=== PATIENT | female | born 2000 | race American Indian/Alaskan Native ===

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

== ENCOUNTER 2020-02-12 12:37 | Emergency (ER) | payer MEDICAID ==
--- NOTE | 2020-02-12 14:36 | Event Note ---
ED Screening Note ED Screening Note: lower abd pain that began this morning sharp, stabbing +nausea +diarrhea no vomiting + sick contact with cold symptoms no fever +dysuria no pmhx allergy: penicillin LNMP: end january no past abdominal surgical history This initial assessment/diagnostic orders/clinical plan/treatment(s) is/are subject to change based on patients health status, clinical progression and re- assessment by fellow clinical providers in the ED. Further treatment and workup at subsequent clinical providers discretion. Patient/guardian urged not to elope from the ED as their condition may be serious if not clinically assessed and managed. Initial orders include: labs, UA
[2020-02-12 14:58] LABS: Basophils % (Auto) 0.4 % (0.0-1.8); Eosinophils % (Auto) 0.2 % (0.0-4.3); Hematocrit 36.9 % (30.3-42.9); Hemoglobin 12.4 gm/dl (10.1-14.3); Lymphocytes % (Auto) 28.6 % (13.4-35.0); Mean Corpuscular HGB Conc 34 % (30-34); Mean Corpuscular Volume 81 fl (79-97); Monocytes # (Auto) 0.5 K/mm3 (0.0-0.8); Platelet Count 226 K/mm3 (140-440); Red Blood Count 4.53 M/mm3 (3.65-5.03); Red Cell Distribution Width 13.7 % (13.2-15.2)
[2020-02-12 15:12] LABS: Alanine Aminotransferase 8 units/L (7-56); Albumin 4.3 g/dL (3.9-5); Blood Urea Nitrogen 8 mg/dL (7-17); Calcium 9.6 mg/dL (8.4-10.2); Hemolysis Index 17
[2020-02-12 15:15] LABS: BUN/Creatinine Ratio 11
[2020-02-12] MEDS ORDERED: ONDANSETRON 4 MG/2 ML INJ IV ONE ×2 (15:58→16:54)
[2020-02-12] MEDS ORDERED: KETOROLAC 30 MG/1 ML INJ IV ONE (15:58)
--- NOTE | 2020-02-12 16:00 | Emergency Department Report ---
<BRYAN MIR - Last Filed: 02/12/20 17:14> ED Abdominal Pain HPI - General Chief Complaint: Abdominal Pain Stated Complaint: SIDE/STOMACH PAIN Time Seen by Provider: 02/12/20 14:31 Source: patient Mode of arrival: Wheelchair Limitations: No Limitations - History of Present Illness Initial Comments: Is a pleasant 19-year-old female presents the emergency department chief complaint of right lower quadrant abdominal pain, diarrhea that started this morning at 8 AM. She reports this was sudden in onset. She states she has been feeling like she had a cold for the last few days. She denies any associated fever, chills, night sweats, headache, dizziness, blurry vision, nausea, vomiting, fever, chills, night sweats, chest pain, shortness of breath or any other associated symptoms. - Related Data Previous Rx's Medication Instructions Recorded Last Taken Type Sulfamethoxazole/Trimethoprim 5 ml PO BID #10 day 10/11/18 Unknown Rx [Bactrim 200-40 mg/5 ml Oral Liq] Cetirizine HCl [Zyrtec 10mg tab] 10 mg PO DAILY #30 tablet 12/02/18 Unknown Rx Fluticasone [Flonase] 1 spray NS QDAY #1 bottle 12/02/18 Unknown Rx Nystas/Diphen/Xyl Visc/Mylanta 30 ml MM BID PRN #480 ml 12/02/18 Unknown Rx [Magic Mouthwash] Chlorhexidine Mouthwash [Peridex] 15 ml MM BID #473 bottle 12/03/18 Unknown Rx Clarithromycin [Biaxin] 500 mg PO BID #14 tab 12/03/18 Unknown Rx Lidocaine Viscous 2% 5 ml MM Q3H PRN #120 udc 12/03/18 Unknown Rx Ondansetron [Zofran ODT TAB] 8 mg PO Q12HR #14 tab.rapdis 12/03/18 Unknown Rx Ondansetron [Zofran Odt] 4 mg PO Q8HR PRN #12 tab.rapdis 02/12/20 Unknown Rx Sulfamethoxazole/Trimethoprim 1 each PO BID #14 tablet 02/12/20 Unknown Rx [Bactrim DS TAB] metroNIDAZOLE [Flagyl] 500 mg PO Q12HR #14 tab 02/12/20 Unknown Rx Allergies Allergy/AdvReac Type Severity Reaction Status Date / Time Penicillins Allergy Rash Verified 12/02/18 18:09 ED Review of Systems Comment: All other systems reviewed and negative Constitutional: denies: chills, fever Eyes: denies: eye pain, eye discharge, vision change ENT: denies: ear pain, throat pain Respiratory: denies: cough, shortness of breath, wheezing Cardiovascular: denies: chest pain, palpitations Endocrine: no symptoms reported Gastrointestinal: as per HPI, abdominal pain, nausea, vomiting. denies: diarrhea Genitourinary: denies: urgency, dysuria, discharge Musculoskeletal: denies: back pain, joint swelling, arthralgia Skin: denies: rash, lesions Neurological: denies: headache, weakness, paresthesias Psychiatric: denies: anxiety, depression Hematological/Lymphatic: denies: easy bleeding, easy bruising ED Past Medical Hx - Past Medical History Previous Medical History?: No - Surgical History Past Surgical History?: No - Social History Smoking Status: Never Smoker Substance Use Type: None - Medications Home Medications: Home Medications Medication Instructions Recorded Confirmed Last Taken Type Sulfamethoxazole/Trimethoprim 5 ml PO BID #10 day 10/11/18 Unknown Rx [Bactrim 200-40 mg/5 ml Oral Liq] Cetirizine HCl [Zyrtec 10mg tab] 10 mg PO DAILY #30 tablet 12/02/18 Unknown Rx Fluticasone [Flonase] 1 spray NS QDAY #1 bottle 12/02/18 Unknown Rx Nystas/Diphen/Xyl Visc/Mylanta 30 ml MM BID PRN #480 ml 12/02/18 Unknown Rx [Magic Mouthwash] Chlorhexidine Mouthwash [Peridex] 15 ml MM BID #473 bottle 12/03/18 Unknown Rx Clarithromycin [Biaxin] 500 mg PO BID #14 tab 12/03/18 Unknown Rx Lidocaine Viscous 2% 5 ml MM Q3H PRN #120 udc 12/03/18 Unknown Rx Ondansetron [Zofran ODT TAB] 8 mg PO Q12HR #14 tab.rapdis 12/03/18 Unknown Rx Ondansetron [Zofran Odt] 4 mg PO Q8HR PRN #12 tab.rapdis 02/12/20 Unknown Rx Sulfamethoxazole/Trimethoprim 1 each PO BID #14 tablet 02/12/20 Unknown Rx [Bactrim DS TAB] metroNIDAZOLE [Flagyl] 500 mg PO Q12HR #14 tab 02/12/20 Unknown Rx ED Physical Exam - General Limitations: No Limitations General appearance: alert, in no apparent distress - Head Head exam: Present: atraumatic, normocephalic - Eye Eye exam: Present: normal appearance - ENT ENT exam: Present: normal exam, normal orophraynx, mucous membranes moist - Neck Neck exam: Present: normal inspection, full ROM. Absent: tenderness, meningismus - Respiratory Respiratory exam: Present: normal lung sounds bilaterally. Absent: respiratory distress, wheezes, rales, rhonchi, stridor - Cardiovascular Cardiovascular Exam: Present: regular rate, normal rhythm, normal heart sounds. Absent: systolic murmur, diastolic murmur, rubs, gallop - GI/Abdominal GI/Abdominal exam: Present: soft, tenderness (TTP to RLQ, no CVA TTP ), normal bowel sounds. Absent: distended, guarding, rebound, rigid - Extremities Exam Extremities exam: Present: normal inspection, full ROM, normal capillary refill. Absent: tenderness, calf tenderness - Back Exam Back exam: Present: normal inspection, full ROM. Absent: tenderness, CVA tenderness (R), CVA tenderness (L) - Neurological Exam Neurological exam: Present: alert, oriented X3, normal gait - Psychiatric Psychiatric exam: Present: normal affect, normal mood - Skin Skin exam: Present: warm, dry, intact, normal color. Absent: rash ED Course - Reevaluation(s) Reevaluation #1: 02/12/20 17:15 Patient nontoxic in no acute distress. Exam with right lower quadrant tenderness. CT was ordered to rule out appendicitis and was unremarkable there was a large cyst on the right ovary. Due to the level of pain ultrasound was ordered. Labs relatively normal. Urine pending. Please see my colleague Jake CARRILLO's note for full dispo instructions. ED Medical Decision Making - Lab Data Result diagrams: 02/12/20 14:36 02/12/20 14:36 Lab Results 02/12/20 02/12/20 02/12/20 Range/Units 14:36 14:36 14:36 WBC 7.0 (4.5-11.0) K/mm3 RBC 4.53 (3.65-5.03) M/mm3 Hgb 12.4 (10.1-14.3) gm/dl Hct 36.9 (30.3-42.9) % MCV 81 (79-97) fl MCH 27 L (28-32) pg MCHC 34 (30-34) % RDW 13.7 (13.2-15.2) % Plt Count 226 (140-440) K/mm3 Lymph % (Auto) 28.6 (13.4-35.0) % Park % (Auto) 7.0 (0.0-7.3) % Eos % (Auto) 0.2 (0.0-4.3) % Baso % (Auto) 0.4 (0.0-1.8) % Lymph # (Auto) 2.0 (1.2-5.4) K/mm3 Park # (Auto) 0.5 (0.0-0.8) K/mm3 Eos # (Auto) 0.0 (0.0-0.4) K/mm3 Baso # (Auto) 0.0 (0.0-0.1) K/mm3 Seg Neutrophils % 63.8 (40.0-70.0) % Seg Neutrophils # 4.5 (1.8-7.7) K/mm3 Sodium 138 (137-145) mmol/L Potassium 4.6 (3.6-5.0) mmol/L Chloride 104.4 (98-107) mmol/L Carbon Dioxide 25 (22-30) mmol/L Anion Gap 13 mmol/L BUN 8 (7-17) mg/dL Creatinine 0.7 (0.6-1.2) mg/dL Estimated GFR > 60 ml/min BUN/Creatinine Ratio 11 % Glucose 92 (65-100) mg/dL Calcium 9.6 (8.4-10.2) mg/dL Total Bilirubin 0.40 (0.1-1.2) mg/dL AST 17 (5-40) units/L ALT 8 (7-56) units/L Alkaline Phosphatase 36 (35-129) units/L Total Protein 7.1 (6.3-8.2) g/dL Albumin 4.3 (3.9-5) g/dL Albumin/Globulin Ratio 1.5 % Lipase 18 (13-60) units/L HCG, Qual Negative (Negative) - Radiology Data Radiology results: report reviewed Cat Scan Report Signed Patient: SHERICE HAWKINS MR#: [id number] : 2000 Acct:[id number] Age/Sex: 19 / F ADM Date: 02/12/20 Loc: ED Attending Dr: Ordering Physician: RADHA BOB Date of Service: 02/12/20 Procedure(s): CT abdomen pelvis w con Accession Number(s): [id number] cc: RADHA BOB CT abdomen pelvis w con INDICATION: RLQ pain. TECHNIQUE: All CT scans at this location are performed using the following dose modulation technique: Automated exposure control. CONTRAST: Omnipaque 300, 100 cc IV injection. COMPARISON: None available. CT ABDOMEN: The parenchymal organs are unremarkable in appearance. Negative for abdominal mass, fluid or inflammation. The bowel is not dilated or thickened. CT PELVIS: The appendix is normal. A complex lesion at the right adnexa measures 4.7 x 3.8 cm. A small amount of free pelvic fluid is present. IMPRESSION: 1. Suspect large, complex cyst right adnexa. 2. Small amount of pelvic free fluid. Signer Name: Aquilino Mendez MD Signed: 02/12/2020 4:48 PM Workstation Name: [id number] Transcribed By: ES Dictated By: Aquilino Mendez MD Electronically Authenticated By: Aquilino Mendez MD Signed Date/Time: 02/12/20 1648 - Differential Diagnosis appendicitis, ovarian cyst, nephrolithiasis ED Disposition Clinical Impression: Bacterial vaginosis Nausea & vomiting Qualifiers: Vomiting type: unspecified Vomiting Intractability: non-intractable Qualified Code(s): R11.2 - Nausea with vomiting, unspecified Abdominal pain Qualifiers: Abdominal location: lower abdomen, unspecified Qualified Code(s): R10.30 - Lower abdominal pain, unspecified Ovarian cyst Qualifiers: Laterality: right Qualified Code(s): N83.201 - Unspecified ovarian cyst, right side UTI (urinary tract infection) Qualifiers: Urinary tract infection type: acute cystitis Hematuria presence: without hematuria Qualified Code(s): N30.00 - Acute cystitis without hematuria Disposition: TO HOME OR SELFCARE Condition: Stable Instructions: Abdominal Pain (ED), Bacterial Vaginosis (ED), Nausea and Vomiting, Adult, Abdominal Pain, Adult Additional Instructions: Follow-up with a primary care doctor in 3-5 days or if symptoms worsen and continue return to emergency room as soon as possible. Return in 3 to 5 days for gonorrhea chlamydia results. Prescriptions: Sulfamethoxazole/Trimethoprim [Bactrim DS TAB] 1 each PO BID #14 tablet metroNIDAZOLE [Flagyl] 500 mg PO Q12HR #14 tab Ondansetron [Zofran Odt] 4 mg PO Q8HR PRN #12 tab.rapdis PRN Reason: Nausea Referrals: PRIMARY CAREMD [Primary Care Provider] - 3-5 Days RICH VIEIRA MD [Staff Physician] - 3-5 Days Forms: Work/School Release Form(ED) <JAKE MACDONALD - Last Filed: 02/12/20 21:53> ED Review of Systems ROS: Stated complaint: SIDE/STOMACH PAIN Other details as noted in HPI ED Physical Exam - External exam: Present: normal external exam, other (Asic Verification Engineer Ebony RN present during exam). Absent: erythema, swelling, lesions, lacerations, ecchymosis, bleeding Speculum exam: Present: cervical discharge, other (Asic Verification Engineer Ebony RN present during exam). Absent: erythema, vaginal discharge, vaginal bleeding, foreign body, tissue, laceration Bi-manual exam: Present: normal bi-manual exam, other (Asic Verification Engineer Ebony RN present during exam). Absent: cervical motion tendernes, adnexal tenderness, adnexal mass, uterine enlargement, uterine tenderness ED Course Vital Signs 02/12/20 02/12/20 02/12/20 13:14 16:12 16:56 Temperature 98.0 F Pulse Rate 84 Respiratory 18 18 18 Rate Blood Pressure 138/84 [Right] O2 Sat by Pulse 98 Oximetry 02/12/20 17:08 Temperature Pulse Rate Respiratory 18 Rate Blood Pressure [Right] O2 Sat by Pulse Oximetry ED Medical Decision Making - Lab Data Result diagrams: 02/12/20 14:36 02/12/20 14:36 - Radiology Data Referring Physician: JAKE MACDONALD Patient Name: SHERICE HAWKINS Date of : 2000 Sex: Female Report Date: 2020-02-12 Report Status: Finalized [facility] [address] [place] [address] Ultrasound Report Signed Patient: SHERICE HAWKINS MR#: [id number] : 2000 Acct:[id number] Age/Sex: 19 / F ADM Date: 02/12/20 Loc: ED Attending Dr: Ordering Physician: JAKE MACDONALD NP Date of Service: 02/12/20 Procedure(s): US pelvis duplex doppler comp Accession Number(s): [id number] cc: JAKE MACDONALD NP PELVIC ULTRASOUND HISTORY: Complex cyst right adnexa. COMPARISON: CT abdomen and pelvis earlier the same day. FINDINGS: Imaging was performed transabdominally. The uterus measures 8.9 x 3.4 x 4.2 cm. The endometrial stripe is prominent measuring 12.5 mm. Right ovary measures 6 x 4.9 x 5.1 cm. A complex lesion at the right ovary measures 4.6 cm. Left ovary measures 2.7 x 1.5 x 1.8 cm and is unremarkable in appearance. Both ovaries contain flow. A small amount of free fluid is noted. IMPRESSION: 1. Complex lesion right ovary is likely a hemorrhagic cyst. 2. Small amount of pelvic free fluid. 3. Prominent endometrial stripe is likely cycle related. 4. Appropriate ovarian flow. Signer Name: Aquilino Mendez MD Signed: 02/12/2020 7:47 PM Workst ation Name: [id number] Transcribed By: ES Dictated By: Aquilino Mendez MD Electronically Authenticated By: Aquilino Mendez MD Signed Date/Time: 02/12/201946 DD/ 43 TD/TT: - Medical Decision Making This is a 19-year-old female that was signed out to me by Darrell GARCIA for pending CT scan. Patient is notified of the CT and ultrasound report with no questions noted by the patient. Exam does not show that she has any cervical motion ten derness. Gonorrhea chlamydia pending. Labs obtained. UA obtained. Patient received medical treatment in the ED which patient stated symptoms has resovled and subsided. Was instructed note to operate any machinery due to possible drowsiness and stated someone will drive the patient home. A by mouth challenge has been obtained and patient tolerated well with no nausea vomiting. Patient was notified of strict precatuions of appendictis symptoms and to return to the ED if symptoms occurs as soon as possible. Patient was also instructed to Follow-up with a primary care doctor in 3-5 days or if symptoms worsen and continue return to emergency room as soon as possible. At time of discharge, the patient does not seem toxic or ill in appearance. No acute signs of distress noted. Patient agrees to discharge treatment plan of care. No further questions noted by the patient. Critical care attestation.: If time is entered above; I have spent that time in minutes in the direct care of this critically ill patient, excluding procedure time. ED Disposition Is pt being admited?: No Does the pt Need Aspirin: No Time of Disposition: 21:52
--- NOTE | 2020-02-12 16:53 | Cat Scan Report ---
CT abdomen pelvis w con INDICATION: RLQ pain. TECHNIQUE: All CT scans at this location are performed using the following dose modulation technique: Automated exposure control. CONTRAST: Omnipaque 300, 100 cc IV injection. COMPARISON: None available. CT ABDOMEN: The parenchymal organs are unremarkable in appearance. Negative for abdominal mass, fluid or inflammation. The bowel is not dilated or thickened. CT PELVIS: The appendix is normal. A complex lesion at the right adnexa measures 4.7 x 3.8 cm. A smal l amount of free pelvic fluid is present. IMPRESSION: 1. Suspect large, complex cyst right adnexa. 2. Small amount of pelvic free fluid. Signer Name: Aquilino Mendez MD Signed: 02/12/2020 4:48 PM Workstation Name: [id number]
[2020-02-12] MEDS ORDERED: MORPHINE 4 MG/1 ML INJ IV ONE (16:54)
[2020-02-12 19:33] LABS: Bacteria,Urine 1+ /HPF (Negative); Bilirubin,Urine NEG (Negative); Blood,Urine NEG (Negative); Color,Urine Yellow (Yellow); Protein,Urine <15 mg/dL mg/dL (Negative); Urobilinogen,Urine < 2.0 mg/dL (<2.0)
--- NOTE | 2020-02-12 19:51 | Ultrasound Report ---
PELVIC ULTRASOUND HISTORY: Complex cyst right adnexa. COMPARISON: CT abdomen and pelvis earlier the same day. FINDINGS: Imaging was performed transabdominally. The uterus measures 8.9 x 3.4 x 4.2 cm. The endomet rial stripe is prominent measuring 12.5 mm. Right ovary measures 6 x 4.9 x 5.1 cm. A complex lesion at the right ovary measures 4.6 cm. Left ovar y measures 2.7 x 1.5 x 1.8 cm and is unremarkable in appearance. Both ovaries contain flow. A small amount of free fluid is noted. IMPRESSION: 1. Complex lesion right ovary is likely a hemorrhagic cyst. 2. Small amount of pelvic free fluid. 3. Prominent endometrial stripe is likely cycle related. 4. Appropriate ovarian flow. Signer Name: Aquilino Mendez MD Signed: 02/12/2020 7:47 PM Workstation Name: [id number]
[2020-02-12 22:55] VITALS: BP 108/75
== END 2020-02-12 22:25 | disposition home or self-care (01) ==
LOC: ED 12:37
DX: N39.0 Urinary tract infection, site not specified (principal); N83.209 Unspecified ovarian cyst, unspecified side; N76.0 Acute vaginitis; B96.89 Other specified bacterial agents as the cause of diseases classified elsewhere; R10.31 Right lower quadrant pain; R11.2 Nausea with vomiting, unspecified; Z79.2 Long term (current) use of antibiotics; Z79.899 Other long term (current) drug therapy; Z88.0 Allergy status to penicillin
CPT/HCPCS: 36415; 74177; 80053; 81001; 83690; 84703; 85025; 87210; 87591; 93975; 96374; 96375; 96376; 99284; J1885; J2270; J2405; Q9967

== ENCOUNTER 2020-02-25 13:39 | Emergency (ER) | payer SELFPAY ==
[2020-02-25 14:41] VITALS: BP 116/86
--- NOTE | 2020-02-25 15:03 | Event Note ---
ED Screening Note ED Screening Note: Patient is a 19-year-old female presents emergency room complaints of constipation and rectal pain that began today She states that she also has rectal bleeding when she wipes She states she last had a bowel movement 2 days ago No fever or vomiting No past medical history allergy to penicillin last menstrual cycle 01/26/2020 This initial assessment/diagnostic orders/clinical plan/treatment(s) is/are subject to change based on patients health status, clinical progression and re- assessment by fellow clinical providers in the ED. Further treatment and workup at subsequent clinical providers discretion. Patient/guardian urged not to elope from the ED as their condition may be serious if not clinically assessed and managed. Initial orders include: Labs, urine, x-ray
[2020-02-25 15:48] LABS: Basophils % (Auto) 0.3 % (0.0-1.8); Eosinophils % (Auto) 0.2 % (0.0-4.3); Hematocrit 37.7 % (30.3-42.9); Hemoglobin 12.2 gm/dl (10.1-14.3); Lymphocytes # (Auto) 1.5 K/mm3 (1.2-5.4); Lymphocytes % (Auto) 11.7 % (13.4-35.0); Mean Corpuscular HGB Conc 32 % (30-34); Mean Corpuscular Volume 83 fl (79-97); Monocytes # (Auto) 0.5 K/mm3 (0.0-0.8); Monocytes % (Auto) 4.1 % (0.0-7.3); Platelet Count 299 K/mm3 (140-440); Red Blood Count 4.54 M/mm3 (3.65-5.03)
[2020-02-25 16:07] LABS: Alanine Aminotransferase 8 units/L (7-56); Albumin 4.3 g/dL (3.9-5); BUN/Creatinine Ratio 15; Blood Urea Nitrogen 12 mg/dL (7-17); Calcium 9.3 mg/dL (8.4-10.2); Hemolysis Index 8
--- NOTE | 2020-02-25 17:16 | XRay Report ---
ABDOMEN 2 VIEW(S) INDICATION / CLINICAL INFORMATION: constipation, rectal pain. COMPARISON: None available. FINDINGS: TUBES / LINES: None. BOWEL GAS PATTERN/EXTRALUMINAL GAS: No significant abnormality. No free air. There is a small amount of stool in colon ADDITIONAL FINDINGS: No significant additional findings. IMPRESSION: 1. No acute abnormality. Signer Name: Enrique Caceres MD Signed: 02/25/2020 5:11 PM Workstation Name: [id number]
[2020-02-25] MEDS ORDERED: SODIUM CHLORIDE 0.9% 1000 ML 1,000 ML IV ONE (20:17)
[2020-02-25] MEDS ORDERED: ONDANSETRON 4 MG/2 ML INJ IV ONE (20:17)
[2020-02-25] MEDS ORDERED: MORPHINE 4 MG/1 ML INJ IV ONE (20:17)
--- NOTE | 2020-02-25 21:32 | Cat Scan Report ---
CT ABDOMEN AND PELVIS WITH CONTRAST INDICATION / CLINICAL INFORMATION: RLQ pain. TECHNIQUE: Axial CT images were obtained through the abdomen and pelvis following the administration of intraven ous contrast. All CT scans at this location are performed using CT dose reduction for ALARA by means of automated exposure control. COMPARISON: CT abdomen/pelvis dated 02/12/2020. FINDINGS: LOWER CHEST: No significant abnormality. LIVER: No significant abnormality. GALLBLADDER: No significant abnormality. PANCREAS: No significant abnormality. SPLEEN: No significant abnormality. ADRENALS: No significant abnormality. KIDNEYS / URETERS: No significant abnormality. URINARY BLADDER: No significant abnormality. REPRODUCTIVE ORGANS: No significant abnormality. STOMACH / SMALL BOWEL: No significant abnormality. COLON: No significant abnormality. APPENDIX: No significant abnormality. PERITONEUM: There is a small volume of pelvic free fluid. No free air. No fluid collection. LYMPH NODES: No significant adenopathy. AORTA / ARTERIES: No significant abnormality. IVC / VEINS: No significant abnormality. SKELETAL SYSTEM: No significant abnormality. ADDITIONAL FINDINGS: None. IMPRESSION: 1. Small volume pelvic free fluid may be physiologic. A ruptured ovarian cyst cannot be completely ex cluded. 2. The appendix is normal. Signer Name: Rafi Virgen MD Signed: 02/25/2020 9:27 PM Workstation Name: [id number]
[2020-02-25 21:57] LABS: Bilirubin,Urine NEG (Negative); Blood,Urine MOD (Negative); Color,Urine Yellow (Yellow); Mucus,Urine FEW /HPF; Protein,Urine <15 mg/dL mg/dL (Negative); Urobilinogen,Urine < 2.0 mg/dL (<2.0)
--- NOTE | 2020-02-25 22:02 | Emergency Department Report ---
ED Abdominal Pain HPI - General Chief Complaint: Rectal Pain Stated Complaint: CONSTIPATION Time Seen by Provider: 02/25/20 15:01 Source: patient Mode of arrival: Ambulatory Limitations: No Limitations - History of Present Illness Initial Comments: This is a 19-year-old female nontoxic, well nourished in appearance, no acute signs of distress presents to the ED with c/o of RLQ abdominal pain x 1 day. PAtient stated has been constipated a few days and tried to have a bowel movement and was not able to and after whipping saw some blood in the tissue paper. PAtient stated after she signed in to the ED, she went to the restroom and tried to have a bowel movement and was successful but was very hard and constipated. Patient denies nausea or vomiting. Patient describes abdominal pain as cramping and aching with level of 8/10 to RLQ. Patient denies chest pain, short of breath, fever, hemoptysis, blood in stool, chills, headache, stiff neck, numbness or tingling. Patient denies any diarrhea. Denies any blood in stool. Patient denies any recent travels. Patient stated allergies to PCN. MD Complaint: abdominal pain -: This evening Location: RLQ Radiation: none Migration to: no migration Severity: mild Severity scale (0 -10): 8 Quality: cramping, aching Consistency: constant Improves With: nothing Worsens With: nothing Associated Symptoms: constipation. denies: nausea, vomiting, diarrhea, fever, chills, dysuria, hematemesis, hematochezia, melena, hematuria, anorexia, syncope - Related Data Previous Rx's Medication Instructions Recorded Last Taken Type Sulfamethoxazole/Trimethoprim 5 ml PO BID #10 day 10/11/18 Unknown Rx [Bactrim 200-40 mg/5 ml Oral Liq] Cetirizine HCl [Zyrtec 10mg tab] 10 mg PO DAILY #30 tablet 12/02/18 Unknown Rx Fluticasone [Flonase] 1 spray NS QDAY #1 bottle 12/02/18 Unknown Rx Nystas/Diphen/Xyl Visc/Mylanta 30 ml MM BID PRN #480 ml 12/02/18 Unknown Rx [Magic Mouthwash] Chlorhexidine Mouthwash [Peridex] 15 ml MM BID #473 bottle 12/03/18 Unknown Rx Clarithromycin [Biaxin] 500 mg PO BID #14 tab 12/03/18 Unknown Rx Lidocaine Viscous 2% 5 ml MM Q3H PRN #120 udc 12/03/18 Unknown Rx Ondansetron [Zofran ODT TAB] 8 mg PO Q12HR #14 tab.rapdis 12/03/18 Unknown Rx Ondansetron [Zofran Odt] 4 mg PO Q8HR PRN #12 tab.rapdis 02/12/20 Unknown Rx Sulfamethoxazole/Trimethoprim 1 each PO BID #14 tablet 02/12/20 Unknown Rx [Bactrim DS TAB] metroNIDAZOLE [Flagyl] 500 mg PO Q12HR #14 tab 02/12/20 Unknown Rx Allergies Allergy/AdvReac Type Severity Reaction Status Date / Time Penicillins Allergy Rash Verified 12/02/18 18:09 ED Review of Systems ROS: Stated complaint: CONSTIPATION Other details as noted in HPI Constitutional: denies: chills, fever Eyes: denies: eye pain, eye discharge, vision change ENT: denies: ear pain, throat pain Respiratory: denies: cough, shortness of breath, wheezing Cardiovascular: denies: chest pain, palpitations Endocrine: no symptoms reported Gastrointestinal: abdominal pain, constipation. denies: nausea, vomiting, diarrhea, hematemesis, melena, hematochezia Genitourinary: denies: urgency, dysuria, discharge Musculoskeletal: denies: back pain, joint swelling, arthralgia Skin: denies: rash, lesions Neurological: denies: headache, weakness, paresthesias Psychiatric: denies: anxiety, depression Hematological/Lymphatic: denies: easy bleeding, easy bruising ED Past Medical Hx - Past Medical History Previous Medical History?: No - Surgical History Past Surgical History?: No - Social History Smoking Status: Never Smoker Substance Use Type: None - Medications Home Medications: Home Medications Medication Instructions Recorded Confirmed Last Taken Type Sulfamethoxazole/Trimethoprim 5 ml PO BID #10 day 10/11/18 Unknown Rx [Bactrim 200-40 mg/5 ml Oral Liq] Cetirizine HCl [Zyrtec 10mg tab] 10 mg PO DAILY #30 tablet 12/02/18 Unknown Rx Fluticasone [Flonase] 1 spray NS QDAY #1 bottle 12/02/18 Unknown Rx Nystas/Diphen/Xyl Visc/Mylanta 30 ml MM BID PRN #480 ml 12/02/18 Unknown Rx [Magic Mouthwash] Chlorhexidine Mouthwash [Peridex] 15 ml MM BID #473 bottle 12/03/18 Unknown Rx Clarithromycin [Biaxin] 500 mg PO BID #14 tab 12/03/18 Unknown Rx Lidocaine Viscous 2% 5 ml MM Q3H PRN #120 udc 12/03/18 Unknown Rx Ondansetron [Zofran ODT TAB] 8 mg PO Q12HR #14 tab.rapdis 12/03/18 Unknown Rx Ondansetron [Zofran Odt] 4 mg PO Q8HR PRN #12 tab.rapdis 02/12/20 Unknown Rx Sulfamethoxazole/Trimethoprim 1 each PO BID #14 tablet 02/12/20 Unknown Rx [Bactrim DS TAB] metroNIDAZOLE [Flagyl] 500 mg PO Q12HR #14 tab 02/12/20 Unknown Rx ED Physical Exam - General Limitations: No Limitations General appearance: alert, in no apparent distress - Head Head exam: Present: atraumatic, normocephalic - Eye Eye exam: Present: normal appearance - Neck Neck exam: Present: normal inspection, full ROM. Absent: tenderness, meni ngismus, lymphadenopathy - Respiratory Respiratory exam: Present: normal lung sounds bilaterally. Absent: respiratory distress, wheezes, rales, rhonchi, stridor, chest wall tenderness, accessory muscle use, decreased breath sounds, prolonged expiratory - Cardiovascular Cardiovascular Exam: Present: regular rate, normal rhythm, normal heart sounds. Absent: bradycardia, tachycardia, irregular rhythm, systolic murmur, diastolic murmur, rubs, gallop - GI/Abdominal GI/Abdominal exam: Present: soft, tenderness (RLQ), normal bowel sounds. 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 Absent: decreased rectal tone, heme (+) stool, black stool, bloody stool, fecal impaction, hemorrhoids, mass, tenderness - Extremities Exam Extremities exam: Present: normal inspection, full ROM - Back Exam Back exam: Present: normal inspection, full ROM. Absent: tenderness, CVA tenderness (R), CVA tenderness (L), muscle spasm, paraspinal tenderness, vertebral tenderness, rash noted - Neurological Exam Neurological exam: Present: alert, oriented X3, normal gait - Psychiatric Psychiatric exam: Present: normal affect, normal mood - Skin Skin exam: Present: warm, dry, intact, normal color. Absent: rash ED Course Vital Signs 02/25/20 02/25/20 13:43 14:41 Temperature 98.2 F Pulse Rate 87 93 H Respiratory 17 24 Rate Blood Pressure 132/81 116/86 [Right] O2 Sat by Pulse 100 97 Oximetry - Reevaluation(s) Reevaluation #1: 02/25/20 22:01 Patient is speaking in full sentences with no signs of distress noted. ED Medical Decision Making - Lab Data Result diagrams: 02/25/20 15:18 02/25/20 15:18 Lab Results 02/25/20 02/25/20 02/25/20 Range/Units 15:18 15:18 15:18 WBC 13.1 H (4.5-11.0) K/mm3 RBC 4.54 (3.65-5.03) M/mm3 Hgb 12.2 (10.1-14.3) gm/dl Hct 37.7 (30.3-42.9) % MCV 83 (79-97) fl MCH 27 L (28-32) pg MCHC 32 (30-34) % RDW 14.0 (13.2-15.2) % Plt Count 299 (140-440) K/mm3 Lymph % (Auto) 11.7 L (13.4-35.0) % Arthur % (Auto) 4.1 (0.0-7.3) % Eos % (Auto) 0.2 (0.0-4.3) % Baso % (Auto) 0.3 (0.0-1.8) % Lymph # (Auto) 1.5 (1.2-5.4) K/mm3 Arthur # (Auto) 0.5 (0.0-0.8) K/mm3 Eos # (Auto) 0.0 (0.0-0.4) K/mm3 Baso # (Auto) 0.0 (0.0-0.1) K/mm3 Seg Neutrophils % 83.7 H (40.0-70.0) % Seg Neutrophils # 11.0 H (1.8-7.7) K/mm3 Sodium 139 (137-145) mmol/L Potassium 3.9 (3.6-5.0) mmol/L Chloride 105.2 (98-107) mmol/L Carbon Dioxide 25 (22-30) mmol/L Anion Gap 13 mmol/L BUN 12 (7-17) mg/dL Creatinine 0.8 (0.6-1.2) mg/dL Estimated GFR > 60 ml/min BUN/Creatinine Ratio 15 % Glucose 89 (65-100) mg/dL Calcium 9.3 (8.4-10.2) mg/dL Total Bilirubin 0.40 (0.1-1.2) mg/dL AST 14 (5-40) units/L ALT 8 (7-56) units/L Alkaline Phosphatase 32 L (35-129) units/L Total Protein 7.4 (6.3-8.2) g/dL Albumin 4.3 (3.9-5) g/dL Albumin/Globulin Ratio 1.4 % Lipase 36 (13-60) units/L HCG, Qual Negative (Negative) Urine Color (Yellow) Urine Turbidity (Clear) Urine pH (5.0-7.0) Ur Specific [place] (1.003-1.030) Urine Protein (Negative) mg/dL Urine Glucose (UA) (Negative) mg/dL Urine Ketones (Negative) mg/dL Urine Blood (Negative) Urine Nitrite (Negative) Urine Bilirubin (Negative) Urine Urobilinogen (<2.0) mg/dL Ur Leukocyte Esterase (Negative) Urine WBC (Auto) (0.0-6.0) /HPF Urine RBC (Auto) (0.0-6.0) /HPF U Epithel Cells (Auto) (0-13.0) /HPF Urine Mucus /HPF 12/20/20 Range/Units 21:41 WBC (4.5-11.0) K/mm3 RBC (3.65-5.03) M/mm3 Hgb (10.1-14.3) gm/dl Hct (30.3-42.9) % MCV (79-97) fl MCH (28-32) pg MCHC (30-34) % RDW (13.2-15.2) % Plt Count (140-440) K/mm3 Lymph % (Auto) (13.4-35.0) % Arthur % (Auto) (0.0-7.3) % Eos % (Auto) (0.0-4.3) % Baso % (Auto) (0.0-1.8) % Lymph # (Auto) (1.2-5.4) K/mm3 Arthur # (Auto) (0.0-0.8) K/mm3 Eos # (Auto) (0.0-0.4) K/mm3 Baso # (Auto) (0.0-0.1) K/mm3 Seg Neutrophils % (40.0-70.0) % Seg Neutrophils # (1.8-7.7) K/mm3 Sodium (137-145) mmol/L Potassium (3.6-5.0) mmol/L Chloride (98-107) mmol/L Carbon Dioxide (22-30) mmol/L Anion Gap mmol/L BUN (7-17) mg/dL Creatinine (0.6-1.2) mg/dL Estimated GFR ml/min BUN/Creatinine Ratio % Glucose (65-100) mg/dL Calcium (8.4-10.2) mg/dL Total Bilirubin (0.1-1.2) mg/dL AST (5-40) units/L ALT (7-56) units/L Alkaline Phosphatase (35-129) units/L Total Protein (6.3-8.2) g/dL Albumin (3.9-5) g/dL Albumin/Globulin Ratio % Lipase (13-60) units/L HCG, Qual (Negative) Urine Color Yellow (Yellow) Urine Turbidity Clear (Clear) Urine pH 6.0 (5.0-7.0) Ur Specific [place] 1.036 H (1.003-1.030) Urine Protein <15 mg/dl (Negative) mg/dL Urine Glucose (UA) Neg (Negative) mg/dL Urine Ketones 20 (Negative) mg/dL Urine Blood Mod (Negative) Urine Nitrite Neg (Negative) Urine Bilirubin Neg (Negative) Urine Urobilinogen < 2.0 (<2.0) mg/dL Ur Leukocyte Esterase Neg (Negative) Urine WBC (Auto) 1.0 (0.0-6.0) /HPF Urine RBC (Auto) 1.0 (0.0-6.0) /HPF U Epithel Cells (Auto) 3.0 (0-13.0) /HPF Urine Mucus Few /HPF - Radiology Data Referring Physician: DIGNA MACDONALD Patient Name: SHERICE HAWKINS Date of : 2000 Sex: Female Report Date: 2020-02-25 Report Status: Finalized [facility] [address] [place] [address] Cat Scan Report Signed Patient: SHERICE HAWKINS MR#: [id number] : 2000 Acct:[id number] Age/Sex: 19 / F ADM Date: 02/25/20 Loc: ED Attending Dr: Ordering Physician: DIGNA MACDONALD NP Date of Service: 02/25/20 Procedure(s): CT abdomen pelvis w con Accession Number(s): [id number] cc: DIGNA MACDONALD NP CT ABDOMEN AND PELVIS WITH CONTRAST INDICATION / CLINICAL INFORMATION: RLQ pain. TECHNIQUE: Axial CT images were obtained through the abdomen and pelvis following the administration of intravenous contrast. All CT scans at this location are performed using CT dose reduction for ALARA by means of automated exposure control. COMPARISON: CT abdomen/pelvis dated 02/12/2020. FINDINGS: LOWER CHEST: No significant abnormality. LIVER: No significant abnorma lity. GALLBLADDER: No significant abnormality. PANCREAS: No significant abnormality. SPLEEN: No significant abnormality. ADRENALS: No significant abnormality. KIDNEYS / URETERS: No significant abnormality. URINARY BLADDER: No significant abnormality. REPRODUCTIVE ORGANS: No significant abnormality. STOMACH / SMALL BOWEL: No significant abnormality. COLON: No significant abnormality. APPENDIX: No significant abnormality. PERITONEUM: There is a small volume of pelvic free fluid. No free air. No fluid collection. LYMPH NODES: No significant adenopathy. AORTA / ARTERIES: No significant abnormality. IVC / VEINS: No significant abnormality. SKELETAL SYSTEM: No significant abnormality. ADDITIONAL FINDINGS: None. IMPRESSION: 1. Small volume pelvic free fluid may be physiologic. A ruptured ovarian cyst cannot be completely excluded. 2. The appendix is normal. Signer Name: Tal Virgen MD Signed: 02/25/2020 9:27 PM Workstation Name: [id number] Transcribed By: SS Dictated By: TAL JOSEPH Electronically Authenticated By: TAL VIRGEN Signed Date/Time: 02/25/202126 DD/ 22 TD/TT: - Medical Decision Making This is a 19-year-old female that presents with constipation and abdominal pain. Patient is stable and was examined by me. Labs obtained. UA obtained. CT of abdomen obtained and dictated by the radiologist. Patient is notified of the report with no questions noted by the patient. Vital signs are stable prior to discharge. Patient received medical treatment in the ED which patient stated symptoms has resovled and subsided. Was instructed note to operate any machinery due to possible drowsiness and stated someone will drive the patient home. A by mouth challenge has been obtained and patient tolerated well with no nausea vomiting. Patient was also instructed to Follow-up with a primary care doctor in 3-5 days or if symptoms worsen and continue return to emergency room as soon as possible. At time of discharge, the patient does not seem toxic or ill in appearance. No acute signs of distress noted. Patient agrees to discharge treatment plan of care. No further questions noted by the patient. - Differential Diagnosis Appendicitis, small bowel obstruction, gastritis, constipation Critical care attestation.: If time is entered above; I have spent that time in minutes in the direct care of this critically ill patient, excluding procedure time. ED Disposition Clinical Impression: Abdominal pain Qualifiers: Abdominal location: right lower quadrant Qualified Code(s): R10.31 - Right lower quadrant pain Constipation Qualifiers: Constipation type: unspecified constipation type Qualified Code(s): K59.00 - Constipation, unspecified Disposition: DC-01 TO HOME OR SELFCARE Is pt being admited?: No Does the pt Need Aspirin: No Condition: Stable Instructions: Abdominal Pain, Adult, [id number], Constipation, Adult Additional Instructions: Follow-up with a primary care doctor in 3-5 days or if symptoms worsen and continue return to emergency room as soon as possible. Referrals: PRIMARY CAREMD [Primary Care Provider] - 3-5 Days RICH VIEIRA MD [Staff Physician] - 3-5 Days Forms: Work/School Release Form(ED) Time of Disposition: 22:05
== END 2020-02-26 00:04 | disposition home or self-care (01) ==
LOC: ED 13:39
DX: K59.00 Constipation, unspecified (principal); Z79.899 Other long term (current) drug therapy
CPT/HCPCS: 36415; 74019; 74177; 80053; 81001; 83690; 84703; 85025; 96361; 96374; 96375; 99285; J2270; J2405; J7030; Q9967

== ENCOUNTER 2020-07-09 11:54 | Emergency (ER) | payer SELFPAY ==
[2020-07-09 12:43] LABS: Basophils % (Auto) 0.2 % (0.0-1.8); Eosinophils % (Auto) 0.1 % (0.0-4.3); Hematocrit 43.4 % (30.3-42.9); Hemoglobin 13.9 gm/dl (10.1-14.3); Lymphocytes % (Auto) 31.9 % (13.4-35.0); Mean Corpuscular HGB Conc 32 % (30-34); Mean Corpuscular Volume 83 fl (79-97); Monocytes # (Auto) 0.4 K/mm3 (0.0-0.8); Monocytes % (Auto) 7.1 % (0.0-7.3); Platelet Count 175 K/mm3 (140-440); Red Blood Count 5.21 M/mm3 (3.65-5.03); Red Cell Distribution Width 14.3 % (13.2-15.2)
--- NOTE | 2020-07-09 13:29 | Event Note ---
ED Screening Note Date of service: 07/09/20 Time: 13:27 ED Screening Note: Pt complains of syncopal episode x today +headache denies vomiting, +diarrhea denies PMHx This initial assessment/diagnostic orders/clinical plan/treatment(s) is/are subject to change based on patients health status, clinical progression and re- assessment by fellow clinical providers in the ED. Further treatment and workup at subsequent clinical providers discretion. Patient/guardian urged not to elope from the ED as their condition may be serious if not clinically assessed and managed. Initial orders include: labs
[2020-07-09 13:34] LABS: Bilirubin,Urine NEG (Negative); Blood,Urine MOD (Negative); Color,Urine Yellow (Yellow); Mucus,Urine 1+ /HPF; Urobilinogen,Urine < 2.0 mg/dL (<2.0)
[2020-07-09 14:51] LABS: Alanine Aminotransferase 13 units/L (7-56); Albumin 4.5 g/dL (3.9-5); BUN/Creatinine Ratio 11; Blood Urea Nitrogen 11 mg/dL (7-17); Calcium 8.9 mg/dL (8.4-10.2); Hemolysis Index 7
--- NOTE | 2020-07-09 18:09 | Emergency Department Report ---
ED General Adult HPI - General Chief complaint: Weakness Stated complaint: I have chest wall pain, I got lightheaded, and I have a mild headache PUI?: No Time Seen by Provider: 07/09/20 12:37 Source: patient, RN notes reviewed, old records reviewed Mode of arrival: Ambulatory Limitations: No Limitations - History of Present Illness Initial comments: The patient was evaluated in the emergency department for symptoms described in the history of present illness. He/she was evaluated in the context of the global COVID-19 pandemic, which necessitated consideration that the patient might be at risk for infection with the virus that causes COVID-19. Institutional protocols and algorithms that pertain to the evaluation of ellie ents at risk for COVID-19 are in a state of rapid change based on information released by regulatory bodies including the CDC and federal and state organizations. These policies and algorithms were followed during the patient's care in the emergency department. Please note that these policies, procedures and recommendations changed on a rapid basis. During the entire history and physical examination, I am chaperoned by nurse Delaney Vuong The patient is a 19-year-old female. 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 The patient presents to the ER today with a complaint of generalized weakness since the weekend. She states she is not really eating or drinking much. She denies loss of taste and smell. She denies fever. Today, the patient was at work, developed chest wall pain, which does not radiate to the back, arms or neck. There is no vomiting, diaphoresis or exertional shortness of breath. She reports that she felt generally weak, and felt like she "had to go down." She states that she felt lightheaded, and felt like she might pass out, but she states that she was awake the whole time. The patient states that she made a conscious effort to not fall or land on her head, "because I did not want to get any head injury." She reports that she subsequently landed on her right shoulder. She also complains of resolved throat pain. She denies stridor. She also complains of headache. The headache is frontal and bitemporal. The headache has been waxing and waning over the past few days. The patient gets headaches every few months. The headache is not described as sudden or thunderclap in nature, maximal intensity, or the worst headache of her life. The patient states that she spends a lot of time on cell phone and electronic devices, but does not know how many hours of screen time she gets per day. The patient has not really taken aspirin recently, she denies personal/family history of DVT, pulmonary embolism, and ischemic heart disease. The patient denies travel, surgery, leg pain, leg swelling, DVT and pulmonary embolism risk factors. Her headache is mostly resolved at this time. She has no throat discomfort at this time. Her chest wall pain is throbbing and aching, increases with palpation and decreases with rest. -: Gradual, hour(s) Location: head, chest Radiation: non-radiation Quality: aching Consistency: other Improves with: other Worsens with: other Associated Symptoms: other - Related Data Previous Rx's Medication Instructions Recorded Last Taken Type Sulfamethoxazole/Trimethoprim 5 ml PO BID #10 day 10/11/18 Unknown Rx [Bactrim 200-40 mg/5 ml Oral Liq] Cetirizine HCl [Zyrtec 10mg tab] 10 mg PO DAILY #30 tablet 12/02/18 Unknown Rx Fluticasone [Flonase] 1 spray NS QDAY #1 bottle 12/02/18 Unknown Rx Nystas/Diphen/Xyl Visc/Mylanta 30 ml MM BID PRN #480 ml 12/02/18 Unknown Rx [Magic Mouthwash] Chlorhexidine Mouthwash [Peridex] 15 ml MM BID #473 bottle 12/03/18 Unknown Rx Clarithromycin [Biaxin] 500 mg PO BID #14 tab 12/03/18 Unknown Rx Lidocaine Viscous 2% 5 ml MM Q3H PRN #120 udc 12/03/18 Unknown Rx Ondansetron [Zofran ODT TAB] 8 mg PO Q12HR #14 tab.rapdis 12/03/18 Unknown Rx Ondansetron [Zofran Odt] 4 mg PO Q8HR PRN #12 tab.rapdis 02/12/20 Unknown Rx Sulfamethoxazole/Trimethoprim 1 each PO BID #14 tablet 02/12/20 Unknown Rx [Bactrim DS TAB] metroNIDAZOLE [Flagyl] 500 mg PO Q12HR #14 tab 02/12/20 Unknown Rx Acetaminophen [Non-Aspirin Extra 500 mg PO Q6HR PRN #30 tablet 07/09/20 Unknown Rx Strength] Ibuprofen [Motrin] 600 mg PO Q8H PRN #30 tablet 07/09/20 Unknown Rx Metoclopramide [Reglan] 10 mg PO QID PRN #30 tablet 07/09/20 Unknown Rx Allergies Allergy/AdvReac Type Severity Reaction Status Date / Time Penicillins Allergy Rash Verified 07/09/20 12:08 ED Review of Systems ROS: Stated complaint: CHEST PAIN, Other details as noted in HPI Constitutional: other (Denies loss of taste and smell). denies: fever Eyes: denies: eye discharge Respiratory: denies: cough, shortness of breath Cardiovascular: chest pain, other (Lightheadedness and near syncope) Gastrointestinal: denies: abdominal pain Genitourinary: denies: dysuria Neurological: as per HPI, headache, weakness. denies: numbness, abnormal gait Psychiatric: anxiety ED Past Medical Hx - Past Medical History Previous Medical History?: No - Surgical History Additional Surgical History: r index finger - Social History Smoking Status: Never Smoker Substance Use Type: None - Medications Home Medications: Home Medications Medication Instructions Recorded Confirmed Last Taken Type Sulfamethoxazole/Trimethoprim 5 ml PO BID #10 day 10/11/18 Unknown Rx [Bactrim 200-40 mg/5 ml Oral Liq] Cetirizine HCl [Zyrtec 10mg tab] 10 mg PO DAILY #30 tablet 12/02/18 Unknown Rx Fluticasone [Flonase] 1 spray NS QDAY #1 bottle 12/02/18 Unknown Rx Nystas/Diphen/Xyl Visc/Mylanta 30 ml MM BID PRN #480 ml 12/02/18 Unknown Rx [Magic Mouthwash] Chlorhexidine Mouthwash [Peridex] 15 ml MM BID #473 bottle 12/03/18 Unknown Rx Clarithromycin [Biaxin] 500 mg PO BID #14 tab 12/03/18 Unknown Rx Lidocaine Viscous 2% 5 ml MM Q3H PRN #120 udc 12/03/18 Unknown Rx Ondansetron [Zofran ODT TAB] 8 mg PO Q12HR #14 tab.rapdis 12/03/18 Unknown Rx Ondansetron [Zofran Odt] 4 mg PO Q8HR PRN #12 tab.rapdis 02/12/20 Unknown Rx Sulfamethoxazole/Trimethoprim 1 each PO BID #14 tablet 02/12/20 Unknown Rx [Bactrim DS TAB] metroNIDAZOLE [Flagyl] 500 mg PO Q12HR #14 tab 02/12/20 Unknown Rx Acetaminophen [Non-Aspirin Extra 500 mg PO Q6HR PRN #30 tablet 07/09/20 Unknown Rx Strength] Ibuprofen [Motrin] 600 mg PO Q8H PRN #30 tablet 07/09/20 Unknown Rx Metoclopramide [Reglan] 10 mg PO QID PRN #30 tablet 07/09/20 Unknown Rx ED Physical Exam - General Limitations: No Limitations General appearance: alert, in no apparent distress - Head Head exam: Present: atraumatic, normocephalic - Eye Eye exam: Present: normal appearance, PERRL, EOMI, other (Visual acuity intact to finger counting, color perception, reading at a close distance). Absent: nystagmus - ENT ENT exam: Present: normal exam, normal orophraynx, mucous membranes moist, normal external ear exam - Neck Neck exam: Present: normal inspection, full ROM. Absent: tenderness, meningismus - Respiratory Respiratory exam: Present: normal lung sounds bilaterally, chest wall tenderness. Absent: respiratory distress, wheezes, rales, rhonchi, stridor, decreased breath sounds - Cardiovascular Cardiovascular Exam: Present: regular rate, normal rhythm, normal heart sounds. Absent: bradycardia, tachycardia, irregular rhythm, systolic murmur, diastolic murmur, rubs, gallop - GI/Abdominal GI/Abdominal exam: Present: soft. Absent: distended, tenderness, guarding, rebound, rigid, pulsatile mass - Extremities Exam Extremities exam: Present: normal inspection, full ROM, other (2+ pulses noted in the bilateral upper and lower extremities. There is no palpable cord. negative Homans sign. Muscular compartments are soft. The pelvis is stable.). Absent: pedal edema, calf tenderness - Back Exam Back exam: Present: normal inspection, full ROM. Absent: tenderness, CVA tenderness (R), CVA tenderness (L), paraspinal tenderness, vertebral tenderness - Neurological Exam Neurological exam: Present: alert, oriented X3, normal gait, other (There is no facial droop. The tongue is midline. Extraocular movements are intact bilaterally. There is 5 out of 5 strength in bilateral upper and lower extremities. Sensation is intact to light touch bilateral upper and lower extremities. There is no past-pointing. There is no pronator drift.). Absent: motor sensory deficit - Psychiatric Psychiatric exam: Present: normal affect, normal mood - Skin Skin exam: Present: warm, dry, intact, normal color. Absent: rash ED Course Vital Signs 07/09/20 07/09/20 07/09/20 12:04 18:27 18:28 Temperature 98.8 F 98.8 F Pulse Rate 91 H 86 Respiratory 20 12 12 Rate Blood Pressure 123/80 Blood Pressure 106/72 [Left] O2 Sat by Pulse 98 97 99 Oximetry - Reevaluation(s) Reevaluation #1: 07/09/20 18:59 X-ray the chest formally interpreted as negative for acute findings. ED Medical Decision Making - Lab Data Result diagrams: 07/09/20 12:11 07/09/20 12:11 Lab Results 07/09/20 07/09/20 07/09/20 Range/Units 12:09 12:11 12:11 WBC 6.2 (4.5-11.0) K/mm3 RBC 5.21 H (3.65-5.03) M/mm3 Hgb 13.9 (10.1-14.3) gm/dl Hct 43.4 H (30.3-42.9) % MCV 83 (79-97) fl MCH 27 L (28-32) pg MCHC 32 (30-34) % RDW 14.3 (13.2-15.2) % Plt Count 175 (140-440) K/mm3 Lymph % (Auto) 31.9 (13.4-35.0) % [place] % (Auto) 7.1 (0.0-7.3) % Eos % (Auto) 0.1 (0.0-4.3) % Baso % (Auto) 0.2 (0.0-1.8) % Lymph # (Auto) 2.0 (1.2-5.4) K/mm3 [place] # (Auto) 0.4 (0.0-0.8) K/mm3 Eos # (Auto) 0.0 (0.0-0.4) K/mm3 Baso # (Auto) 0.0 (0.0-0.1) K/mm3 Seg Neutrophils % 60.7 (40.0-70.0) % Seg Neutrophils # 3.8 (1.8-7.7) K/mm3 Sodium 137 (137-145) mmol/L Potassium 4.2 (3.6-5.0) mmol/L Chloride 102.4 (98-107) mmol/L Carbon Dioxide 22 (22-30) mmol/L Anion Gap 17 mmol/L BUN 11 (7-17) mg/dL Creatinine 1.0 (0.6-1.2) mg/dL Estimated GFR > 60 ml/min BUN/Creatinine Ratio 11 % Glucose 86 (65-100) mg/dL Calcium 8.9 (8.4-10.2) mg/dL Total Bilirubin 0.30 (0.1-1.2) mg/dL AST 20 (5-40) units/L ALT 13 (7-56) units/L Alkaline Phosphatase 36 (35-129) units/L Troponin T < 0.010 (0.00-0.029) ng/mL Total Protein 7.5 (6.3-8.2) g/dL Albumin 4.5 (3.9-5) g/dL Albumin/Globulin Ratio 1.5 % HCG, Qual (Negative) Urine Color Yellow (Yellow) Urine Turbidity Slightly-cloudy (Clear) Urine pH 5.0 (5.0-7.0) Ur Specific Melvin 1.025 (1.003-1.030) Urine Protein 30 mg/dl (Negative) mg/dL Urine Glucose (UA) Neg (Negative) mg/dL Urine Ketones 20 (Negative) mg/dL Urine Blood Mod (Negative) Urine Nitrite Neg (Negative) Urine Bilirubin Neg (Negative) Urine Urobilinogen < 2.0 (<2.0) mg/dL Ur Leukocyte Esterase Neg (Negative) Urine WBC (Auto) 3.0 (0.0-6.0) /HPF Urine RBC (Auto) 4.0 (0.0-6.0) /HPF U Epithel Cells (Auto) 6.0 (0-13.0) /HPF Urine Mucus 1+ /HPF 07/09/20 07/09/20 Range/Units 12:39 15:36 WBC (4.5-11.0) K/mm3 RBC (3.65-5.03) M/mm3 Hgb (10.1-14.3) gm/dl Hct (30.3-42.9) % MCV (79-97) fl MCH (28-32) pg MCHC (30-34) % RDW (13.2-15.2) % Plt Count (140-440) K/mm3 Lymph % (Auto) (13.4-35.0) % [place] % (Auto) (0.0-7.3) % Eos % (Auto) (0.0-4.3) % Baso % (Auto) (0.0-1.8) % Lymph # (Auto) (1.2-5.4) K/mm3 [place] # (Auto) (0.0-0.8) K/mm3 Eos # (Auto) (0.0-0.4) K/mm3 Baso # (Auto) (0.0-0.1) K/mm3 Seg Neutrophils % (40.0-70.0) % Seg Neutrophils # (1.8-7.7) K/mm3 Sodium (137-145) mmol/L Potassium (3.6-5.0) mmol/L Chloride (98-107) mmol/L Carbon Dioxide (22-30) mmol/L Anion Gap mmol/L BUN (7-17) mg/dL Creatinine (0.6-1.2) mg/dL Estimated GFR ml/min BUN/Creatinine Ratio % Glucose (65-100) mg/dL Calcium (8.4-10.2) mg/dL Total Bilirubin (0.1-1.2) mg/dL AST (5-40) units/L ALT (7-56) units/L Alkaline Phosphatase (35-129) units/L Troponin T < 0.010 (0.00-0.029) ng/mL Total Protein (6.3-8.2) g/dL Albumin (3.9-5) g/dL Albumin/Globulin Ratio % HCG, Qual Negative (Negative) Urine Color (Yellow) Urine Turbidity (Clear) Urine pH (5.0-7.0) Ur Specific Melvin (1.003-1.030) Urine Protein (Negative) mg/dL Urine Glucose (UA) (Negative) mg/dL Urine Ketones (Negative) mg/dL Urine Blood (Negative) Urine Nitrite (Negative) Urine Bilirubin (Negative) Urine Urobilinogen (<2.0) mg/dL Ur Leukocyte Esterase (Negative) Urine WBC (Auto) (0.0-6.0) /HPF Urine RBC (Auto) (0.0-6.0) /HPF U Epithel Cells (Auto) (0-13.0) /HPF Urine Mucus /HPF Lab Results 07/09/20 07/09/20 07/09/20 Range/Units 12:09 12:11 12:11 WBC 6.2 (4.5-11.0) K/mm3 RBC 5.21 H (3.65-5.03) M/mm3 Hgb 13.9 (10.1-14.3) gm/dl Hct 43.4 H (30.3-42.9) % MCV 83 (79-97) fl MCH 27 L (28-32) pg MCHC 32 (30-34) % RDW 14.3 (13.2-15.2) % Plt Count 175 (140-440) K/mm3 Lymph % (Auto) 31.9 (13.4-35.0) % [place] % (Auto) 7.1 (0.0-7.3) % Eos % (Auto) 0.1 (0.0-4.3) % Baso % (Auto) 0.2 (0.0-1.8) % Lymph # (Auto) 2.0 (1.2-5.4) K/mm3 [place] # (Auto) 0.4 (0.0-0.8) K/mm3 Eos # (Auto) 0.0 (0.0-0.4) K/mm3 Baso # (Auto) 0.0 (0.0-0.1) K/mm3 Seg Neutrophils % 60.7 (40.0-70.0) % Seg Neutrophils # 3.8 (1.8-7.7) K/mm3 Sodium 137 (137-145) mmol/L Potassium 4.2 (3.6-5.0) mmol/L Chloride 102.4 (98-107) mmol/L Carbon Dioxide 22 (22-30) mmol/L Anion Gap 17 mmol/L BUN 11 (7-17) mg/dL Creatinine 1.0 (0.6-1.2) mg/dL Estimated GFR > 60 ml/min BUN/Creatinine Ratio 11 % Glucose 86 (65-100) mg/dL Calcium 8.9 (8.4-10.2) mg/dL Total Bilirubin 0.30 (0.1-1.2) mg/dL AST 20 (5-40) units/L ALT 13 (7-56) units/L Alkaline Phosphatase 36 (35-129) units/L Troponin T < 0.010 (0.00-0.029) ng/mL Total Protein 7.5 (6.3-8.2) g/dL Albumin 4.5 (3.9-5) g/dL Albumin/Globulin Ratio 1.5 % HCG, Qual (Negative) Urine Color Yellow (Yellow) Urine Turbidity Slightly-cloudy (Clear) Urine pH 5.0 (5.0-7.0) Ur Specific Melvin 1.025 (1.003-1.030) Urine Protein 30 mg/dl (Negative) mg/dL Urine Glucose (UA) Neg (Negative) mg/dL Urine Ketones 20 (Negative) mg/dL Urine Blood Mod (Negative) Urine Nitrite Neg (Negative) Urine Bilirubin Neg (Negative) Urine Urobilinogen < 2.0 (<2.0) mg/dL Ur Leukocyte Esterase Neg (Negative) Urine WBC (Auto) 3.0 (0.0-6.0) /HPF Urine RBC (Auto) 4.0 (0.0-6.0) /HPF U Epithel Cells (Auto) 6.0 (0-13.0) /HPF Urine Mucus 1+ /HPF 07/09/20 07/09/20 Range/Units 12:39 15:36 WBC (4.5-11.0) K/mm3 RBC (3.65-5.03) M/mm3 Hgb (10.1-14.3) gm/dl Hct (30.3-42.9) % MCV (79-97) fl MCH (28-32) pg MCHC (30-34) % RDW (13.2-15.2) % Plt Count (140-440) K/mm3 Lymph % (Auto) (13.4-35.0) % [place] % (Auto) (0.0-7.3) % Eos % (Auto) (0.0-4.3) % Baso % (Auto) (0.0-1.8) % Lymph # (Auto) (1.2-5.4) K/mm3 [place] # (Auto) (0.0-0.8) K/mm3 Eos # (Auto) (0.0-0.4) K/mm3 Baso # (Auto) (0.0-0.1) K/mm3 Seg Neutrophils % (40.0-70.0) % Seg Neutrophils # (1.8-7.7) K/mm3 Sodium (137-145) mmol/L Potassium (3.6-5.0) mmol/L Chloride (98-107) mmol/L Carbon Dioxide (22-30) mmol/L Anion Gap mmol/L BUN (7-17) mg/dL Creatinine (0.6-1.2) mg/dL Estimated GFR ml/min BUN/Creatinine Ratio % Glucose (65-100) mg/dL Calcium (8.4-10.2) mg/dL Total Bilirubin (0.1-1.2) mg/dL AST (5-40) units/L ALT (7-56) units/L Alkaline Phosphatase (35-129) units/L Troponin T < 0.010 (0.00-0.029) ng/mL Total Protein (6.3-8.2) g/dL Albumin (3.9-5) g/dL Albumin/Globulin Ratio % HCG, Qual Negative (Negative) Urine Color (Yellow) Urine Turbidity (Clear) Urine pH (5.0-7.0) Ur Specific Melvin (1.003-1.030) Urine Protein (Negative) mg/dL Urine Glucose (UA) (Negative) mg/dL Urine Ketones (Negative) mg/dL Urine Blood (Negative) Urine Nitrite (Negative) Urine Bilirubin (Negative) Urine Urobilinogen (<2.0) mg/dL Ur Leukocyte Esterase (Negative) Urine WBC (Auto) (0.0-6.0) /HPF Urine RBC (Auto) (0.0-6.0) /HPF U Epithel Cells (Auto) (0-13.0) /HPF Urine Mucus /HPF - EKG Data -: EKG Interpreted by [place] EKG shows normal: sinus rhythm Rate: normal - EKG Data When compared to previous EKG there are: previous EKG unavailable 07/09/20 18:36 EKG #1, interpreted at 12: 30 Sinus rhythm, 68 bpm. Normal axis, normal intervals, high left ventricular voltage, not a STEMI. No prior for comparison. EKG #2 unchanged from prior. EKG #2 interpreted at 18: 30 - Radiology Data Radiology results: image reviewed interpreted by me: 1 view x-ray of the chest, interpreted by myself, negative for acute findings. - Medical Decision Making Differential diagnosis, including but not limited to: Costochondritis, GERD, gastritis, hiatal hernia, orthostasis, vagal event, dehydration Assessment and plan: 19-year-old female, who is not currently tachycardic, tachypneic or hypoxic, who denies DVT and pulmonary embolism risk factors, who is low risk by Wells criteria for pulmonary embolism, PERC negative, EKG unchanged x2, troponin negative x 2, symptoms present for hours. Patient observed in this department for 6 hours without convulsive event, syncope, loss of consciousness. Patient has equal pulses in the upper and lower extremities, no pulsatile abdominal mass, and an unremarkable x-ray of the chest, therefore, aortic disease is very unlikely. Patient at low risk for major adverse cardiac event as per heart score. Given reproducibility, history and physical, do not have a high suspicion for GERD, gastritis, hiatal hernia at this time. Pneumonia is unlikely given history, physical, and x-ray findings. I find coronary artery disease of significance to be unlikely. As per this institutions policy, procedure, protocol, patient's information is transmitted to [facility] cardiology, whereby patient should be contacted within the next 2 days to arrange close outpatient follow-up On multiple repeat evaluations, patient resting comfortably on stretcher, playing with her cellular phone, does not appear to be in any acute distress. We discussed cell phone avoidance, minimization of screen time, drinking and eating enough fluids and food, respectively, avoidance of operating motor vehicles and driving, and instructions to follow-up with outpatient primary care and/or cardiology. Patient has articulated understanding. Patient has a GCS of 15, with a nonfocal motor examination, there is no blunt head trauma, and she is clinically sober. Do not see indication for advanced neuroimaging at this time. Critical care attestation.: If time is entered above; I have spent that time in minutes in the direct care of this critically ill patient, excluding procedure time. ED Disposition Clinical Impression: Chest wall pain, Lightheadedness Headache Qualifiers: Headache type: unspecified Headache chronicity pattern: unspecified pattern Intractability: not intractable Qualified Code(s): R51.9 - Headache, unspecified Disposition: DC-01 TO HOME OR SELFCARE Is pt being admited?: No Does the pt Need Aspirin: No Condition: Good Instructions: Near-Syncope, [id number]-rr-[id number], Chest Wall Pain Additional Instructions: DepressionWe recommend that the patient not drive or operate motor vehicles until cleared to do so by her primary care doctor or millinery department manager. No contact information has been transmitted to [facility] cardiology, where patient should be receiving a phone call to follow-up for an appointment with the cardiology group within the next few days. However, we also recommend that the patient contact the cardiology group on her own accord, to secure outpatient follow-up. We recommend follow-up with a millinery department manager within the next 3 to 5 days. Recommend follow-up with a primary care doctor within the next 5 days to 2 weeks. For the patient's convenience, local primary care doctor, and millinery department manager have been listed for her convenience. Please make certain to get 7 hours of good quality uninterrupted sleep every day, minimize/avoid exposure to cell phone, electronic devices, and avoid excessive screen time. Please take the headache medicine, pain medication, as needed and directed, heavy and spicy foods, tobacco, alcohol and smoke products. Please return to the emergency room right away with new pain, worsened pain, migration of pain, projectile vomiting, change in mental status, confusion, inability to tolerate liquid feeds, new, worsened or different symptoms not present on the initial emergency room evaluation. Prescriptions: Ibuprofen [Motrin] 600 mg PO Q8H PRN #30 tablet PRN Reason: Pain Acetaminophen [Non-Aspirin Extra Strength] 500 mg PO Q6HR PRN #30 tablet PRN Reason: Pain , Severe (7-10) Metoclopramide [Reglan] 10 mg PO QID PRN #30 tablet PRN Reason: Nausea Referrals: RICH VIEIRA MD [Staff Physician] - 3-5 Days [facility] [Provider Group] - 3-5 Days Forms: Work/School Release Form(ED)
[2020-07-09 18:29] VITALS: BP 106/72
[2020-07-09] MEDS ORDERED: IBUPROFEN 400 MG TAB PO ONE (18:34)
[2020-07-09] MEDS ORDERED: ACETAMINOPHEN 325 MG TAB PO ONE (18:34)
[2020-07-09] MEDS ORDERED: FAMOTIDINE 20 MG TAB PO ONE (18:34)
--- NOTE | 2020-07-09 18:43 | XRay Report ---
CHEST 1 VIEW 07/09/2020 5:32 PM INDICATION / CLINICAL INFORMATION: chest pain. COMPARISON: None available. FINDINGS: SUPPORT DEVICES: None. HEART / MEDIASTINUM: No significant abnormality. LUNGS / PLEURA: No significant pulmonary or pleural abnormality. No pneumothorax. ADDITIONAL FINDINGS: No significant additional findings. IMPRESSION: 1. No acute findings. Signer Name: Matthew Hudson MD Signed: 07/09/2020 6:38 PM Workstation Name: [id number]
--- NOTE | 2020-07-11 17:25 | Electrocardiograph Report ---
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
--- NOTE | 2020-07-11 17:30 | Electrocardiograph Report ---
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
== END 2020-07-09 19:38 | disposition home or self-care (01) ==
LOC: ED 11:54
DX: R07.89 Other chest pain (principal); R51.9 Headache, unspecified; R42 Dizziness and giddiness; Z79.899 Other long term (current) drug therapy; Z88.0 Allergy status to penicillin
CPT/HCPCS: 36415; 71045; 80053; 81001; 84484; 84703; 85025; 93005

== ENCOUNTER 2020-12-12 10:32 | Emergency (ER) | payer SELFPAY ==
[2020-12-12 10:44] VITALS: BP 120/58
--- NOTE | 2020-12-12 11:56 | Emergency Department Report ---
ED General Adult HPI - General Chief complaint: Abdominal Pain Stated complaint: LEFT SIDE PAIN/SORETHROAT Time Seen by Provider: 12/12/20 11:30 Source: patient Mode of arrival: Ambulatory Limitations: No Limitations - History of Present Illness Initial comments: 20-year-old female presents to the ER today with complaints of sore throat and left lower quadrant abdominal pain. Patient states that she started with sore throat 3 days ago. She states that she is concerned that it could be related to a strep infection. She states that she noticed white exudates on her tonsils. She states that she was having lots of pain when her symptoms first started, she feels like her sore throat is improving but is still concerned for possible strep. She denies any fever, chills, cough, rhinorrhea, nasal congestion, trismus or drooling. Patient also complains of left lower quadrant abdominal pain which started this morning. She states that the pain feels similar to when she was diagnosed with an ovarian cyst back in February of last year. Patient states that the pain has been constant since this morning. She denies any UTI symptoms, bowel changes, abnormal vaginal bleeding or any abnormal vaginal discharge. She states that her last menstrual cycle was towards the end of November 2020. She is not currently on any control. She denies any abdominal surgeries in the past. She denies any new sexual partners recently. She states when she was diagnosed with a "cyst", she remembers that they also give her antibiotics but is not sure why they gave her antibiotics. She states that she did not follow-up with [facility]. Reviewed patient's visit from February 2020. She was diagnosed with a large right ovarian cyst via CT scan, as well as UTI and BV and was prescribed Bactrim and Flagyl. Complaint: Sore throat/left sided abdominal pain -: days(s) - Related Data Previous Rx's Medication Instructions Recorded Last Taken Type Ibuprofen [Motrin] 600 mg PO Q8H PRN #30 tablet 12/12/20 Unknown Rx Allergies Allergy/AdvReac Type Severity Reaction Status Date / Time Penicillins Allergy Rash Verified 07/09/20 12:08 ED Review of Systems ROS: Stated complaint: LEFT SIDE PAIN/SORETHROAT Other details as noted in HPI Comment: All other systems reviewed and negative Constitutional: denies: chills, fever Eyes: denies: eye pain, eye discharge, vision change ENT: throat pain Gastrointestinal: abdominal pain. denies: nausea, vomiting, diarrhea, constipation, hematemesis, hematochezia Genitourinary: denies: urgency, dysuria, frequency, hematuria, discharge, abnormal menses, dyspareunia Musculoskeletal: denies: back pain, joint swelling, arthralgia Skin: denies: rash, lesions, change in color, change in hair/nails, pruritus Neurological: denies: headache, weakness, numbness, paresthesias, confusion, abnormal gait, vertigo Psychiatric: denies: anxiety, depression, auditory hallucinations, visual hallucinations, homicidal thoughts, suicidal thoughts Hematological/Lymphatic: denies: easy bleeding, easy bruising, swollen glands ED Past Medical Hx - Past Medical History Previous Medical History?: No - Surgical History Past Surgical History?: Yes Additional Surgical History: r index finger - Social History Smoking Status: Never Smoker Substance Use Type: None - Medications Home Medications: Home Medications Medication Instructions Recorded Confirmed Last Taken Type Ibuprofen [Motrin] 600 mg PO Q8H PRN #30 tablet 12/12/20 Unknown Rx ED Physical Exam - General Limitations: No Limitations General appearance: alert, in distress (appears uncomfortable due to pain ) - Head Head exam: Present: atraumatic, normocephalic, normal inspection - Eye Eye exam: Present: normal appearance, PERRL, EOMI Pupils: Present: normal accommodation - ENT ENT exam: Present: mucous membranes moist - Expanded ENT Exam Expanded Mouth exam: Present: normal external inspection Throat exam: Positive: tonsillar erythema, tonsillomegaly, tonsillar exudate - Neck Neck exam: Present: normal inspection, full ROM. Absent: meningismus - Respiratory Respiratory exam: Present: normal lung sounds bilaterally. Absent: respiratory distress, wheezes, rales, rhonchi - Cardiovascular Cardiovascular Exam: Present: regular rate, normal rhythm, normal heart sounds - GI/Abdominal GI/Abdominal exam: Present: soft, tenderness (LLQ). Absent: distended, guarding, rebound, rigid - Neurological Exam Neurological exam: Present: alert, oriented X3, CN II-XII intact, normal gait - Psychiatric Psychiatric exam: Present: normal affect, normal mood - Skin Skin exam: Present: intact ED Course Vital Signs 12/12/20 10:42 Temperature 97.9 F Pulse Rate 83 Respiratory 20 Rate Blood Pressure 120/58 O2 Sat by Pulse 100 Oximetry ED Medical Decision Making - Lab Data Result diagrams: 12/12/20 12:19 12/12/20 12:19 - Radiology Data Radiology results: report reviewed Patient: SHERICE HAWKINS MR#: [id number] : 2000 Acct:[id number] Age/Sex: 20 / F ADM Date: 12/12/20 Loc: ED Attending Dr: Ordering Physician: LESLY RICCI Date of Service: 12/12/20 Procedure(s): US pelvic complete Accession Number(s): [id number] cc: LESLY RICCI ULTRASOUND PELVIS INDICATION / CLINICAL INFORMATION: severe left pelvic pain. TECHNIQUE: Transabdominal. Duplex Color Doppler used: Yes. COMPARISON: CT from 02/25/2020 FINDINGS: UTERUS: The uterus measures 8.4 x 3.9 x 4.6 cm. The uterus demonstrates a normal sonographic appearance. The endometrial stripe measures 1.1 cm, within normal limits for age. RIGHT ADNEXA: No significant ovarian cyst or mass. Normal color Doppler blood flow. LEFT ADNEXA: 3.3 cm complex cystic structure in the left ovary. Normal color Doppler blood flow. URINARY BLADDER: No significant abnormality. FREE FLUID: None. ADDITIONAL FINDINGS: None. IMPRESSION: 3.3 cm complex cystic structure in the left ovary, most likely reflects hemorrhagic cyst. Recommend follow-up pelvic ultrasound in 6 weeks to assess resolution. Otherwise, no significant abnormality. Signer Name: Jazmine Purdy MD Signed: 12/12/2020 1:35 PM Workstation Name: [id number] Transcribed By: ALONSO Dictated By: JAZMINE PURDY MD Electronically Authenticated By: JAZMINE PURDY MD Signed Date/Time: 12/12/20 1335 DD/ 1334 TD/TT: - Medical Decision Making Patient states that her pain has improved after p.o. Tylenol. She is currently resting comfortably and not in any acute distress. She is not toxic or ill- appearing. Repeat abdominal exam shows a soft nontender abdomen. All labs reviewed -CBC and CMP unremarkable. hCG is negative. Rapid strep negative. Wet prep negative for trichomoniasis, BV or yeast. Urinalysis appears more contaminated than true UTI . Her pelvic exam showed mild adnexal tenderness but otherwise unremarkable, and there was no CMT. Pelvic ultrasound shows that she has a 3.3 ovarian cyst, most likely a hemorrhagic cyst and radiologist recommend follow-up in 6 weeks. Discussed all results with patient. Offered patient prophylactic gonorrhea and Chlamydia treatment which she states that she has been with the same person for the over the past 2 years and she does not believe she has gonorrhea or chlamydia. Informed her that if she wants to know for sure she can go to the medical record department next week to get a copy of her results. Patient will be given referral information to local [facility] for follow-up on her ovarian cyst. As far as a sore throat, symptoms could be related to viral tonsillitis, and recommend oral pain medication and [id number] throat lozenges. Patient expressed understanding of all instructions and agree with plan. Patient stable at time of discharge - Differential Diagnosis Ectopic , UTI, ovarian cyst, torsion, PID Critical care attestation.: If time is entered above; I have spent that time in minutes in the direct care of this critically ill patient, excluding procedure time. ED Disposition Clinical Impression: Left ovarian cyst, Tonsillitis Disposition: HOME / SELF CARE / HOMELESS Is pt being admited?: No Does the pt Need Aspirin: No Condition: Stable Instructions: Tonsillitis, [id number], Ovarian Cyst, [id number], Abdominal Pain (ED) Additional Instructions: Take the motrin as prescribed to help with pain. You can do [id number] throat lozenges or sprays to help with any sore throat. Continue to drink lots of fluids including cold fluids which can also help with sore throat. I do recommend following up with [facility] for further evaluation of your ovarian cyst. If you do not have an [facility] on Wednesday listed on your discharge instructions. An ENT specialist also with listed on your discharge instructions if you continue to have any further issues with your tonsils. Return to the ER if your symptoms changes or worsens in any way. Prescriptions: Ibuprofen [Motrin] 600 mg PO Q8H PRN #30 tablet PRN Reason: Pain Referrals: [facility] [Provider Group] - 3-5 Days [facility] [Provider Group] - 3-5 Days JAZMINE SHARIF MD [Staff Physician] - 7-10 days (ENT specialist ) Forms: Work/School Release Form(ED) Time of Disposition: 15:08 Print Language: ITALIAN
[2020-12-12] MEDS ORDERED: SODIUM CHLORIDE 0.9% 1000 ML 1,000 ML IV ONE (11:59)
[2020-12-12] MEDS ORDERED: ACETAMINOPHEN 325 MG TAB PO ONE (12:00)
[2020-12-12 13:15] LABS: Basophils % (Auto) 0.3 % (0.0-1.8); Eosinophils % (Auto) 0.1 % (0.0-4.3); Hematocrit 38.3 % (30.3-42.9); Hemoglobin 12.5 gm/dl (10.1-14.3); Lymphocytes # (Auto) 1.9 K/mm3 (1.2-5.4); Lymphocytes % (Auto) 21.5 % (13.4-35.0); Mean Corpuscular HGB Conc 33 % (30-34); Mean Corpuscular Volume 82 fl (79-97); Monocytes # (Auto) 0.7 K/mm3 (0.0-0.8); Monocytes % (Auto) 8.2 % (0.0-7.3); Platelet Count 256 K/mm3 (140-440); Red Blood Count 4.67 M/mm3 (3.65-5.03); Red Cell Distribution Width 14.6 % (13.2-15.2)
[2020-12-12 13:18] LABS: Alanine Aminotransferase 8 units/L (7-56); Albumin 4.7 g/dL (3.9-5); BUN/Creatinine Ratio 15; Blood Urea Nitrogen 12 mg/dL (7-17); Calcium 9.3 mg/dL (8.4-10.2); Hemolysis Index 1
[2020-12-12 13:23] LABS: Bilirubin,Direct < 0.2 mg/dL (0-0.2)
--- NOTE | 2020-12-12 13:40 | Ultrasound Report ---
ULTRASOUND PELVIS INDICATION / CLINICAL INFORMATION: severe left pelvic pain. TECHNIQUE: Transabdominal. Duplex Color Doppler used: Yes. COMPARISON: CT from 02/25/2020 FINDINGS: UTERUS: The uterus measures 8.4 x 3.9 x 4.6 cm. The uterus demonstrates a normal sonographic appeara nce. The endometrial stripe measures 1.1 cm, within normal limits for age. RIGHT ADNEXA: No significant ovarian cyst or mass. Normal color Doppler blood flow. LEFT ADNEXA: 3.3 cm complex cystic structure in the left ovary. Normal color Doppler blood flow. URINARY BLADDER: No significant abnormality. FREE FLUID: None. ADDITIONAL FINDINGS: None. IMPRESSION: 3.3 cm complex cystic structure in the left ovary, most likely reflects hemorrhagic cyst. Recommend f ollow-up pelvic ultrasound in 6 weeks to assess resolution. Otherwise, no significant abnormality. Signer Name: Shawn Purdy MD Signed: 12/12/2020 1:35 PM Workstation Name: [id number]
[2020-12-12 14:55] LABS: Bilirubin,Urine NEG (Negative); Blood,Urine NEG (Negative); Color,Urine Yellow (Yellow); Mucus,Urine FEW /HPF; Protein,Urine <15 mg/dL mg/dL (Negative); Urobilinogen,Urine < 2.0 mg/dL (<2.0)
== END 2020-12-12 15:47 | disposition home or self-care (01) ==
LOC: ED 10:32
DX: J03.90 Acute tonsillitis, unspecified (principal); N83.202 Unspecified ovarian cyst, left side; Z79.899 Other long term (current) drug therapy; Z88.0 Allergy status to penicillin
CPT/HCPCS: 36415; 76856; 80048; 80076; 81001; 83690; 84703; 85025; 87086; 87116; 87210; 87430; 87591; 96360; 99284; J7030